=== PATIENT | male | born 1970 | race Caucasian/White ===

== ENCOUNTER 2017-12-24 22:57 | Emergency (ER) | payer MEDICARE, MEDICAID, OTHER ==
[2017-12-25] MEDS: morphine 4 MG/ML VIAL IV (00:30)
[2017-12-25] MEDS ORDERED: CLINDAMYCIN 300 MG INJ IV (00:30)
[2017-12-25] MEDS: CLINDAMYCIN 600 MG/D5W (PMX) 50 ML IVPB (00:52)
== END 2017-12-25 01:50 | disposition home or self-care (01) ==
LOC: FTE 22:57
DX: L02.211 Cutaneous abscess of abdominal wall (principal); E11.9 Type 2 diabetes mellitus without complications; Z79.4 Long term (current) use of insulin; Z79.82 Long term (current) use of aspirin
CPT/HCPCS: 96374; 96375; 99284-25

== ENCOUNTER 2017-12-30 20:07 | Emergency (ER) | payer MEDICARE, MEDICAID | END 2017-12-30 21:02 | disposition home or self-care (01) | LOC: E/R 20:07 | DX: Z48.01 Encounter for change or removal of surgical wound dressing (principal); E11.9 Type 2 diabetes mellitus without complications; Z79.4 Long term (current) use of insulin; Z79.82 Long term (current) use of aspirin | CPT/HCPCS: 99281 ==

== ENCOUNTER 2018-01-04 14:49 | Emergency (ER) | payer MEDICARE, MEDICAID | END 2018-01-04 15:15 | disposition home or self-care (01) | LOC: E/R 14:49 | DX: H15.89 Other disorders of sclera (principal); L02.211 Cutaneous abscess of abdominal wall; E11.9 Type 2 diabetes mellitus without complications; Z79.4 Long term (current) use of insulin; Z79.82 Long term (current) use of aspirin | CPT/HCPCS: 99283 ==

== ENCOUNTER 2018-08-07 18:52 | Emergency (ER) | payer MEDICARE, OTHER, MEDICAID ==
[2018-08-07] MEDS: DIPHTH/TET/ACEL PERTUSS (ADULT) 0.5 ML VIAL IM* (20:25)
== END 2018-08-07 20:33 | disposition home or self-care (01) ==
LOC: FTE 18:52
DX: L03.113 Cellulitis of right upper limb (principal); E11.9 Type 2 diabetes mellitus without complications; I10 Essential (primary) hypertension; J06.9 Acute upper respiratory infection, unspecified; Z23 Encounter for immunization; Z79.4 Long term (current) use of insulin; Z79.82 Long term (current) use of aspirin
CPT/HCPCS: 90471; 90715; 99283-25

== ENCOUNTER 2019-04-22 14:53 | Emergency (ER) | payer MEDICARE, OTHER ==
[2019-04-22] MEDS: HYDROCODONE/APAP (10/325) TAB PO (17:24)
== END 2019-04-22 17:34 | disposition home or self-care (01) ==
LOC: FTE 14:53
DX: G89.4 Chronic pain syndrome (principal); I10 Essential (primary) hypertension; E11.9 Type 2 diabetes mellitus without complications; Z79.4 Long term (current) use of insulin; Z79.82 Long term (current) use of aspirin
CPT/HCPCS: 99283